=== PATIENT | female | born 1975 | race Caucasian/White ===

== ENCOUNTER 2022-12-02 14:06 | Emergency (ER) | payer OTHER ==
[2022-12-02 14:23] LABS: BASOPHILS 0.4 % (0-2); EOSINOPHILS 1.3 % (0-6); HEMATOCRIT 44.3 % (35.0-50.0); HEMOGLOBIN 14.7 g/dL (12.0-18.0); LYMPHOCYTES 16.9 % (24-44); MCH 28.4 (27-36); MCHC 33.2 g/dl (30-36); MCV 85.5 fl (81-99); MONOCYTES 6.4 % (0-12); PLATELET COUNT 294 K/uL (140-440); RBC 5.18 M/ul (4.3-5.7); RDW 14.2 (10.5-15.0)
[2022-12-02 14:39] LABS: INR 0.93 (0.80-1.30)
[2022-12-02 14:40] LABS: ALBUMIN 3.8 g/dL (3.4-5.0); ALBUMIN/GLOBULIN RATIO 0.95 (1.1-2.4); ALKALINE PHOSPHATASE 65 U/L (46-116); ALT (SGPT) 20 U/L (14-59); ANION GAP 13.9 (7-21); AST (SGOT) 16 U/L (15-37); BILIRUBIN, TOTAL 0.8 ng/dL (0.2-1.0); BUN/CREATININE RATIO 14.01 (6.0-28.6); CALCIUM 9.4 mg/dL (8.5-10.1); CARBON DIOXIDE 25 mmol/L (21-32); CHLORIDE 102 mmol/L (98-107); CREATININE, SERUM 1.07 mg/dL (0.55-1.02); GLOMERULAR FILTRATION RATE,EST 65 mL/min (>60); POTASSIUM 3.9 mmol/L (3.5-5.1); PROTEIN, TOTAL 7.8 g/dL (6.4-8.2); UREA NITROGEN 15 mg/dL (7-18)
[2022-12-02] MEDS ORDERED: CYCLOBENZAPRINE10 MG PO (15:14)
[2022-12-02 15:27] VITALS: BP 110/73
--- NOTE | 2022-12-03 22:24 | EKG ---
[facility] [address] [place] [address] Signed Sinus tachycardia Biatrial enlargement Abnormal ECG No previous ECGs available Confirmed by THIERRY JOSHUA MD ([id number]) on 12/03/2022 10:23:50 PM Electronically Signed By: THIERRY JOSHUA 12/03/222223 PATIENT NAME: KENZIE DAIVS Electrocardiogram DATE OF : 79 PHYSICIAN: THIERRY JOSHUA REPORT #: [id number] REPORT IS CONFIDENTIAL AND NOT TO BE RELEASED WITHOUT AUTHORIZATION
== END 2022-12-02 15:29 | disposition home or self-care (01) ==
LOC: ED 14:06
PROVIDERS: Family Medicine
DX: R07.89 Other chest pain (principal)
CPT/HCPCS: 36415; 71045; 80053; 83735; 84484; 85025; 85379; 85610; 93005; 93010; 99285-25